=== PATIENT | male | born 1970 | race Caucasian/White ===

== ENCOUNTER 2024-03-13 02:02 | Day surgery (SDC) | payer OTHER, SELFPAY ==
[2024-03-04 13:24] VITALS: BMI 31.3
--- OUTSIDE RECORDS SUMMARY | 2024-03-13 02:05 | XMS_ITS | Data Portability ---
Author Organization [place] - [facility], Thomas Mo Address [address] [place] [address] Care Team Providers Care Tour Driver Name Role Phone ESSENCE HINOJOSA Primary Care Provider Assessment No assessment recorded. Plan of Treatment Reminders Order Date Submit Date Provider Last Modified By Organization Details Last Modified Time Details Appointments InPerson; Chronic Disease Mgmt 2024 04:00P Abran Hinojosa NP Not available Not available Not available [facility] lipid [facility], [facility] [place], [address], 09/04/2023 12:17:46 HbA1c (hemoglob in A1c), blood 2023 024 [facility]), [facility] [place], [address], 09/04/2023 12:17:48 CMP, serum or plasma 2023 024 [facility] [address] [place], [address], 09/04/2023 12:17:46 PSA, serum or plasma 2023 024 [facility] [place], [address], 09/04/2023 12:17:47 Referral None recorded. Procedures colonosco py screening (PROC) - hx polyps, was due for repeat 2021. 2023 024 [facility]un [facility], [address], [address], [place], [address], 03/04/2024 13:16:51 Surgeries None recorded. Imaging LDCT, chest, for lung cancer screening 2023 024 [email or web address] [facility], [address] [facility], [address], [place], [address], 12/13/2023 12:28:37 Medication Orders sildenafi l 100 mg tablet 2022 023 [facility], [address] [place] [address], [id number], 01/16/2023 18:51:16 lisinopri l 20 mg tablet 2022 023 [facility], [address] [place] [address], [id number], 01/16/2023 18:51:15 atorvasta tin 20 mg tablet 2022 023 [facility], [address] [place] [address], [id number], 01/16/2023 18:51:16 Patient TargetsNo targets recorded. Patient Instructions Encounter Date Encounter Id Patient Instructions Last Modified By Organization Details Last Modified Time 09/03/2023 [id number] smoking cessatio n counseling, greater than 3 minutes up to 10 minutes* [email or web address] Not available 09/03/2023 18:47:12 Reason for Referral None Reported. Results Created Date Observation Date Name Description Value Unit Range Abnormal Flag Note LastModifiedBy Organization Detail LastModifiedTime 09/03/1909/04/2023 COMP. METAB OLIC PANEL (14) glucose 93 mg/dL 70-99 normal Not Available [facility] ([facility]) [address] [facility], [place], [address], 09/04/2023 12:17:46 09/03/19 24 09/04/2023 COMP. METAB OLIC PANEL (14) BUN 18 mg/dL 6-24 normal Not Available [facility] ([facility]) [address] [place], [address], 09/04/2023 12:17:46 09/03/19 24 09/04/2023 COMP. METAB OLIC PANEL (14) creatinine 1.06 mg/dL 0.76-1 .27 normal Not Available [facility] ([facility]) [address] [place], [address], 09/04/2023 12:17:46 09/03/19 24 09/04/2023 COMP. METAB OLIC PANEL (14) eGFR 83 mL/mi n/1.7 3 >59 normal Not Available [facility] ([facility]) [address], [place], [address], 09/04/2023 12:17:46 09/03/19 24 09/04/2023 COMP. METAB OLIC PANEL (14) BUN/creatini ne ratio 17 9-20 normal Not Available [facility] ([facility]) [address] [facility], [place], [address], 09/04/2023 12:17:46 09/03/19 24 09/04/2023 COMP. METAB OLIC PANEL (14) sodium 141 mmol/ L 134-14 4 normal Not Available [facility] ([facility]) [address] [place], [address], 09/04/2023 12:17:46 09/03/19 24 09/04/2023 COMP. METAB OLIC PANEL (14) potassium 4.6 mmol/ L 3.5-5. 2 normal Not Available [facility] ([facility]) [address] [place], [address], 09/04/2023 12:17:46 09/03/19 24 09/04/2023 COMP. METAB OLIC PANEL (14) chloride 103 mmol/ L 96-106 normal Not Available [facility] ([facility] [address] [place], [address], 09/04/2023 12:17:46 09/03/19 24 09/04/2023 COMP. METAB OLIC PANEL (14) carbon dioxide, total 23 mmol/ L 20-29 normal Not Available [facility] ([facility]) [address] [place], [address], 09/04/2023 12:17:46 09/03/19 24 09/04/2023 COMP. METAB OLIC PANEL (14) calcium 9.6 mg/dL 8.7-10 .2 normal Not Available [facility] ([facility]) [address] [place], [address], 09/04/2023 12:17:46 09/03/19 24 09/04/2023 COMP. METAB OLIC PANEL (14) protein, total 7.4 g/dL 6.0-8. 5 normal Not Available [facility] ([facility]) [address] [place], [address], 09/04/2023 12:17:46 09/03/19 24 09/04/2023 COMP. METAB OLIC PANEL (14) albumin 4.7 g/dL 3.8-4. 9 normal Not Available [facility] ([facility]) [address] [place], [address], 09/04/2023 12:17:46 09/03/19 24 09/04/2023 COMP. METAB OLIC PANEL (14) globulin, total 2.7 g/dL 1.5-4. 5 Not Available [facility] ([facility]) [address] [place], [address], 09/04/2023 12:17:46 09/03/19 24 09/04/2023 COMP. METAB OLIC PANEL (14) bilirubin, total 0.3 mg/dL 0.0-1. 2 normal Not Available [facility] ([facility] [address] [place], [address], 09/04/2023 12:17:46 09/03/19 24 09/04/2023 COMP. METAB OLIC PANEL (14) alkaline phosphatase 48 IU/L 44-121 normal Not Available [facility]) [address] [place], [address], 09/04/2023 12:17:46 09/03/19 24 09/04/2023 COMP. METAB OLIC PANEL (14) AST (SGOT) 23 IU/L 0-40 normal Not Available [facility] ([facility]) [address] [place], [address], 09/04/2023 12:17:46 09/03/19 24 09/04/2023 COMP. METAB OLIC PANEL (14) ALT (SGPT) 17 IU/L 0-44 normal Not Available [facility] ([facility]) [address] [place], [address], 09/04/2023 12:17:46 09/03/19 24 09/04/2023 LIPID PANEL WITH LDL/H DL RATIO cholesterol, total 241 mg/dL 100-19 9 above high normal Not Available [facility] ([facility]) [address] [place], [address], 09/04/2023 12:17:46 09/03/19 24 09/04/2023 LIPID PANEL WITH LDL/H DL RATIO triglyceride s 371 mg/dL 0-149 above high normal Not Available [facility] ([facility]) [address] [place], [address], 09/04/2023 12:17:46 09/03/19 24 09/04/2023 LIPID PANEL WITH LDL/H DL RATIO HDL cholesterol 51 mg/dL >39 normal Not Available [facility]) [address] [place], [address], 09/04/2023 12:17:46 09/03/19 24 09/04/2023 LIPID PANEL WITH LDL/H DL RATIO VLDL cholesterol ted 65 mg/dL 5-40 above high normal Not Available [facility] ([facility]) [address] [place], [address], 09/04/2023 12:17:46 09/03/19 24 09/04/2023 LIPID PANEL WITH LDL/H DL RATIO LDL chol calc ([facility]) 125 mg/dL 0-99 above high normal Not Available [facility] ([facility]) [address] [place], [address], 09/04/2023 12:17:46 09/03/19 24 09/04/2023 LIPID PANEL WITH LDL/H DL RATIO LDL calc comment: REHABILITATION ASSISTANT Not Available [facility] ([facility]) [address] [place], [address], 09/04/2023 12:17:46 09/03/19 24 09/04/2023 LIPID PANEL WITH LDL/H DL RATIO LDL/HDL ratio 2.5 ratio 0.0-3. 6 LDL/H DL Ratio Men Women 1/2 Avg.R isk 1.0 1.5 Avg.R isk 3.6 3.2 2X Avg.R isk 6.2 5.0 3X Avg.R isk 8.0 6.1 Not Available [facility] ([facility]) [address] [place], [address], 09/04/2023 12:17:46 09/03/19 24 09/03/2023 PSA TOTAL (REFL EX TO FREE) reflex criteria Commen t The perce nt free PSA is perfo rmed on a refle x basis only when the total PSA is betwe en 4.0 and 10.0 ng/mL . Not Available [facility] ([facility]) [address] [place], [address], 09/04/2023 12:17:47 09/03/19 24 09/04/2023 PSA TOTAL (REFL EX TO FREE) prostate specific Ag 0.5 NG/mL 0.0-4. 0 normal Mirtha ECLIA metho dolog y. Accor ding to the Ameri can Urolo gical Assoc iatio n, Serum PSA shoul d decre ase and remai n at undet ectab le level s after radic al prost atect [place]. The AUA defin es bioch emica l recur rence as an initi al PSA value 0.2 ng/mL or great er follo wed by a subse quent confi rmato ry PSA value 0.2 ng/mL or great er. Value s obtai florentino with diffe rent assay metho ds or kits canno t be used inter walters eably . Resul ts canno t be inter prete d as absol smiley evide nce of the prese nce or absen ce of nahten teague se. Not Available [facility] ([facility]) [address] [facility], [place], [address], 09/04/2023 12:17:47 09/03/1909/04/2023 HEMOG LOBIN A1C hemoglobin A1C 5.5 % 4.8-5. 6 normal Predi abete s: 5.7 - 6.4 Diabe kelly: >6.4 Glyce jh contr ol for adult s with diabe kelly: <7.0 Not Available [facility] ([facility]) [address] [facility], [place], [address], 09/04/2023 12:17:48 Result Notes None recorded. Problems Name Problem SNOMED Code Status Onset Date Resolution Date Notes Provider Name and Address Organization Details Recorded Time Polyp of colon 08626774 Active Due for repeat colonosc opy 2021 Yaritza Storm MD [address], [place], [address] , [place] [facility] 3 16:40:21 Hyperlip idemia 28579669 Active Yaritza Storm MD [address], [place], [address] , [place] - [facility] 3 16:40:31 [facility] hyperten luisa 70156843 Active Yaritza Storm MD [address], [place], [address] , [place] [facility] 3 16:40:42 Smoker 96077154 Active Yaritza Storm MD [address], [place], [place], [address] [place] [address] , [place] [facility] 3 16:40:52 Gout 80168772 Active Yaritza Storm MD [address], [place], [place], [address] [place] [address] , [place] [facility] 3 16:41:00 Chronic back pain 889340139 Active Yaritza Storm MD [address], [place], [address] [place] [address] , [place] [facility] 3 16:41:08 Hyperten sive disorder 08840413 Active 2018 Hyperten sive disorder ; PROBABIL ITY: 0 SENSIT IVITY: 0.0 Conf irmation : Confirme d Annota tedDispl ay: Hyperten luisa Cla ssificat ion: Medical Lifecycl eDateTim e: 19:07:00 +00:00 Not Available [facility] 4 18:44:40 Absence Completed 201805/30/2023 None; PROBABIL ITY: 0 Confir mation: Confirme d Annota tedDispl ay: None Cla ssificat ion: Medical Not Available [facility] 4 18:44:40 Obesity 086811504 Active 2018 Obesity; PROBABIL ITY: 0 Confir mation: Probable Annotat edDispla y: Obesity Classifi cation: Medical Lifecycl eDateTim e: 18:00:00 +00:00 Not Available [facility] 4 18:44:40 History of polyp of colon 268969233 Active 2023 Essence Hinojosa NP [address], [facility], [place], [address] [place] [address] , [facility] 4 18:49:26 Problem Notes None recorded. Procedures Surgical History Date Name Laterality Status Provider Name and Address Organization Details Recorded Time 9 colonoscopy completed Essence Hinojosa NP [address], [place], [address], [place] [facility] 12/11/2023 22:57:58 Imaging Results None recorded. Procedure Notes None recorded. Medical Equipment None Reported. Allergies Allergen ID Allergen Name Allergen Category Reaction Reaction Severity Criticality Documentation Date Start Date Code Code System Note Provider Name and Address Organization Details Recorded Time 713814 No Allergy Informati on Available Not available Not available Not available Not available 05/30/2023 35107 UNK Comme nt: React ion Class : Aller gy; Not Available [facility] 19:02:26 Medications Name Sig Start Date Stop Date Status Note LastModified by Organization Details LastModified Time Augmentin 875 mg-125 mg tablet 1 tab(s) Oral q12hr,x1 0 days 01/29 completed Duration : 10 Durat ionUnit: days Sto pType: Physicia n Stop Jagdeep gIdentif icationN umber: [id number] S cheduled PRN: No Total Refills: 0 Consta ntIndica tor: Yes acti ve_statu s_dt_tm: 10:54:38 AM Not Available Not Available Not Available atorvasta tin 20 mg tablet TAKE 1 TABLET BY MOUTH EVERY DAY 2024 active Not Available Not Available Not Avai lable sildenafi l 50 mg tablet 01/10 completed PRNInstr uctions: as needed for erectile dysfunct ion Stop Type: Hard Stop Jagdeep gIdentif icationN umber: [id number] S cheduled PRN: Yes Tota lRefills : 0 Consta ntIndica tor: No CSASc hedule: 0 active _status_ dt_tm: 10:01:09 AM Not Available Not Available Not Available cetirizin e 10 mg tablet Take 1 tablet every day by oral route. active Not Available Not Available No t Available lisinopri l 20 mg tablet TAKE 1 TABLET BY MOUTH EVERY DAY 2024 active Not Available Not Available Not Avai lable tramadol 50 mg tablet 1 tab(s) Oral bid,PRN: for dental pain 07/12 completed PRNInstr uctions: for dental pain Dis continue Date: 07/12/2021 11:33:00 AM Disco ntinueTy pe: User Manual DC StopT ype: Physicia n Stop Jagdeep Jo-Ann antonioN umber: [id number] S cheduled PRN: Yes Tota lRefills : 0 Consta ntIndica tor: No CSASc hedule: 4 active _status_ dt_tm: 01/11/20 21 10:21:07 AM Not Available Not Available Not Available sildenafi l 100 mg tablet TAKE 1 TABLET BY ORAL ROUTE DIRECTED . 2024 active Not Available Not Available Not Avai lable benzonata te 100 mg capsule 1-2 cap(s) Oral tid,x7 days 12/24 completed Duration : 7 Durati onUnit: day(s) S topType: Physicia n Stop Jagdeep Jo-Ann antonioTahira umber: [id number] S cheduled PRN: No Total Refills: 0 Consta ntIndica tor: Yes CSAS chedule: 0 active _status_ dt_tm: 9 4:26:48 PM Not Available Not Available Not Available indometha jo-ann 50 mg capsule Take 1 capsule 3 times a day by oral route. 01/16 completed Not Available Not Available Not Available fluticaso ne propionat e 50 mcg/actua tion nasal spray,nicole pension SPRAY 2 SPRAYS IN EACH NOSTRIL ONCE DAILY 2023 active Not Available Not Available Not Avai lable cyclobenz aprine 5 mg tablet TAKE ONE OR TWO TABLETS BY MOUTH EVERY 8 HOURS NEEDED FOR PAIN. MAY CAUSE DROWSINE SS. active Not Available Not Available No t Available Adacel (Tdap Adolesn/A dult)(PF) 2 Lf-(2.5-5 -3-5)-5 Lf/0.5 mL IM syringe 12/17 completed StopType : Physicia n Stop Jagdeep Jo-Ann antonioN umber: [id number] N extDoseD ate: 9 4:27:00 PM Const antIndic ator: No CSASc hedule: 0 active _status_ dt_tm: 9 4:27:40 PM Not Available Not Available Not Available Vitals Date Recorded Body height Provider Name an d Address Organization Details Last Updated DateTime 01/16/2023 190.5 cm Marnie [place] [facility] 07/2022 18:17:26 Date Recorded Body mass index (BMI) Body weight Provider Name and Address Organization Details Last Updated DateTime 01/16/2023 32.1 kg/m2 029890.24 g Marniealber [place] [facility] 01/16/2023 18:17:38 Date Recorded Heart rate Provider Name an d Address Organization Details Last Updated DateTime 01/16/2023 71 /min Marnie Isaacses [place] [facility] 07/2022 18:18:06 Date Recorded Oxygen saturation Oxygen saturation in Arterial blood by Pulse oximetry Provider Name and Address Organization Details Last Updated DateTime 01/16/2023 99 % 99 % Marnie Michelle [place] [facility] 01/16/2023 18:18:25 Date Recorded Body temperature Provider Name a nd Address Organization Details Last Updated DateTime 01/16/2023 98.7 [degF] Marnie [place] [facility] 07/2022 18:18:56 Date Recorded Body height Provider Name an d Address Organization Details Last Updated DateTime 09/03/2023 190.5 cm Júnior [place] [facility] 16:46:13 Date Recorded Body mass index (BMI) Body weight Provider Name and Address Organization Details Last Updated DateTime 09/03/2023 32.6 kg/m2 976266.61 g Júnior [place] [facility] 09/03/2023 16:46:19 Date Recorded Respiratory rate Provider Name a nd Address Organization Details Last Updated DateTime 09/03/2023 16 /min Júnior [place] [facility] 16:47:15 Date Recorded Oxygen saturation Oxygen saturation in Arterial blood by Pulse oximetry Provider Name and Address Organization Details Last Updated DateTime 09/03/2023 98 % 98 % Júnior [place] [facility] 16:47:17 Date Recorded Body temperature Provider Name a nd Address Organization Details Last Updated DateTime 09/03/2023 98.6 [degF] Júnior [place] [facility] 09/03/19 16:47:21 Date Recorded Heart rate Provider Name an d Address Organization Details Last Updated DateTime 09/03/2023 90 /min Júnior [place] [facility] 16:47:25 Date Recorded Systolic blood pressure Diastolic blood pressure Provider Name and Address Organization Details Last Updated DateTime 01/16/2023 149 mm[Hg] 97 mm[Hg] Marnie Martinez [place] [facility] 01/16/2023 18:17:56 Date Recorded Systolic blood pressure Diastolic blood pressure Provider Name and Address Organization Details Last Updated DateTime 01/16/2023 144 mm[Hg] 88 mm[Hg] Essence Hinojosa, [address], [place], [address], [place] [facility] 01/16/2023 18:29:18 Date Recorded Systolic blood pressure Diastolic blood pressure Provider Name and Address Organization Details Last Updated DateTime 09/03/2023 140 mm[Hg] 92 mm[Hg] Júnior Michel [place] [facility] 0 09/03/2023 16:48:02 Social History Question Answer Notes LastModified by Organizat ion Details LastModified Time Tobacco Smoking Status Current Every Day Smoker Marnie Martinez [facility], [place] [facility] 01/16/2023 18:14:34 What Is Your Level Of Alcohol Consumption? Moderate Weekly [email or web address] Information not available 01/16/2023 What Is Your Level Of Caffeine Consumption? Heavy [email or web address] Information not available 01/16/2023 In The 14 Days Before Symptom Onset, Have You Had Close Contact With A Laboratory-confir med COVID-19 While That Case Was Ill? No Information not available 01/16/2023 In The 14 Days Before Symptom Onset, Have You Had Close Contact With A Person Who Is Under Investigation For COVID-19 While That Person Was Ill? No [email or web address] Information not available 01/16/2023 Have You Been To An Area Known To Be High Risk For COVID-19? No Information not available 01/16/2023 What Is Your Current Pack Years? 30ormorepack years Information not available 01/16/2023 What Is Your Relationship Status? [email or web address] Information not available 01/16/2023 How Much Tobacco Do You Smoke? 1 PPW [email or web address] Information not available 01/16/2023 How Many Years Have You Smoked Tobacco? 30 More Than 30 [email or web address] Information not available 01/16/2023 Do You Or Have You Ever Used Any Other Forms Of Tobacco Or Nicotine? No [email or web address] Information not available 01/16/2023 Sex: Unknown Functional Status None recorded. Mental Status None recorded. Family History Relationship Description Onset Age of this Age Resolved Age Notes LastModified by Organization Details LastModified Time Mother Malignant tumor of cervix [email or web address] Not available 2022 18:51:47 Brother Essential hypertension [email or web address] Not available 07/2022 18:52:00 Father Essential hypertension [email or web address] Not available 07/2022 18:52:00 Notes:Brother: High blood pr essure Father: Mother: Cervical cancer Medical History No medical history recorded. Immunizations Vaccine Type Date Status Note Provider Nam e and Address Organization Details Recorded Time Tdap 12/17/2018 completed Essence Hinojosa NP [address], [place], [address], [place] [facility] 01/16/2023 18:56:19 SARS-COV-2 (COVID-19) vaccine, UNSPECIFIED 04/22/2020 completed Essence Hinojosa NP [address], [place], [address], [place] [facility] 01/16/2023 18:56:19 influenza, split (incl. purified surface antigen) 06/23/2013 completed Júnior julien [place] [facility] 09/03/2023 16:46:06 Past Encounters Encounter ID Performer Location Encounter Start Date Encounter Closed Date Diagnosis/Indication Diagnosis SNOMED-CT Code Diagnosis ICD10 Code Diagnosis Note [id number] [address] [place] [address] 01/16/2023 17:56:48 01/22/2023 06:53:06 Essential hypertension 67047843 I10 To keep a home BP long and return in 1 month for review and blood work. May need to increase dose. Erectile dysfunction 860 571964 F52.21 Hyperlipidemia 00286844 E78.5 [id number] [address] [place] [address] 09/03/2023 16:33:43 09/03/2023 17:20:00 Adult health examination 839848584 Z00.00 Briefly discussed healthy diet and regular exercise. Encouraged to be tobacco free. Encouraged to avoid binge drinking or more than 2 drinks per day. Annual eye exam and biannual dental cleanings recommende d. Discussed recommende d vaccines and screenings per HPI. Discussed option to follow up with physician in 2 weeks for new conditions . Smoker 22032229 F17.200 .Encourage d cessation. Currently not interested .CT Chest order placed and he will plan to get done in next few months. Essential hypertension 75796667 I10 VV in 2-3 weeks to f/u on home BP once restarting lisinopril .RTC 6 months History of polyp of colon 944484385 Z86.010 Due for repeat colonoscop y. Health Concerns Section Related Observation LastModified by Organization Detai ls LastModified Time None Recorded Concern Status LastModified by Organization Details LastModified Time None Recorded Advance Directives Directive None Recorded Payers Encounter Date Sequence Insurance Name Policy Number Policy El Covered Member ID El Member ID Guarantor Name 01/16/2023 1 [facility] [id number] Henrik Walsh UNKNOWN Henrik Walsh 09/03/2023 1 [facility] [id number] Sammy Nico UNKNOWN Henrik Walsh Notes Date Note Type Note Provider Name and Address Organization Details Recorded Time 01/16/2023 text/html HTN on lisinopri l 20mg daily. Usually compliant with meds. Mom broke her hip last week so routine has been off and missed a few doses. HLD on atorvastatin (ASCVD risk >16%). No new body pains. Has some left knee pain when kneeling.ED on sildenafil. Hx of Gout: takes indomethacin prn (has not needed in months). No recent flares. Smoker: 35+ pack years. Has never had lung cancer screening. CT Chest ordered but has yet to schedule. Not drinking as much. 6-8 Beverages at a time, not everyday. . Chronic back pain: works with chiro for flares. Doing well recently.Colonosco py ordered for polyps. Has # to schedule when he's ready. Essence Hinojosa NP [address], [place], [address], [place] [facility] 01/16/2023 18:58:16 09/03/2023 text/html The patient presents for annual well adult exam.Health concerns:HTN on lisinopril 20mg daily.Lost insurance and ran out so has not take in months. Has a new refill at home but has not opened pharmacy bag yet.HLD on atorvastatin (ASCVD risk >16%). Has not taken in months.ED on sildenafil.Hx of Gout: takes indomethacin prn (has not needed in months). No recent flares.Smoker: 35+ pack years. Has never had lung cancer screening. CT Chest ordered but has yet to schedule. Chronic back pain: works with [employer] for flares. More sore lately . Colonoscopy ordered for polyps. Would like to get done before he turns 53. Diet: Unrestricted.Exerc ise: Active at work, +Yard work, and farm work.Caffeine use: Has cut coffee down to <4 cups per day (down from 12/day)Tobacco use: 1-1.5ppd x 35 years, quit a few times for short period. Considering quitting but poor motivation - it's not a good time . No chewing or vaping.Alcohol use: Tapered down to 20 beers per week, monstly on weekends.Lives at home with who is also a ramirez and 3 daughters Last dentist exam:B[place]on has a hole from mouth to right sinus from molar extraction. Has upper dentures.Last eye exam: DueAnxiety / Depression concerns: denies poor mood despite stress.Vaccines:Td ap 2019COVID vaccine: J&J hingrix: declinesPneumonia: declinesFlu: declines Recommended Screenings:PSA: labs todayLung Cancer Chest CT: ordered, never doneColonoscopy: 2019 - polyps; repeat in 2 years.(Overdue)Daniel pedraza cancer screen ( age > 50 & 20 pack yr hx):HCV/HIV Screen:Negative Essence Hinojosa NP [id number], [place], [address], [place] [facility] 09/03/2023 18:50:55
[2024-03-13 06:54] VITALS: BP 142/88; PULSE 75; RESP 20; TEMP 35.7; O2SAT 97; BMI 31.8
[2024-03-13] MEDS: LACTATED RINGERS 1,000 ML 150 ML IV CONT (07:05)
--- NOTE | 2024-03-13 07:41 | P.PNAN_ITS ---
Anes - Initial Pre Proc Eval Procedure: Operation Date: 03/13/24 08:00 Proposed Procedures p Screening Colonoscopy - Newton Huynh MD Date/Time: 03/13/24 07:41 Surgeon: Newton Huynh MD Pre Op Diagnosis: personal hx polyps Patient Data Age: 53 Gender: M Height: 1.91 m Weight: 115.7 kg Last Vital Signs Temp 35.7 C L 03/13/24 06:54 Pulse 75 03/13/24 06:54 Resp 20 03/13/24 06:54 BP 142/88 H 03/13/24 06:54 Pulse Ox 97 03/13/24 06:54 O2 Del Method Room Air 03/13/24 06:54 Allergies Allergy/AdvReac Type Severity Reaction Status Date / Time No Known Drug Allergies Allergy Mild Other Verified 03/13/24 06:52 Home Medications ?Medication ?Instructions ?Recorded ?Confirmed ?Type lisinopril 20 mg tablet 20 mg PO DAILY 01/22/19 03/13/24 History atorvastatin 20 mg tablet 20 mg PO .qday 03/04/24 03/13/24 History Patient hx anesthesia problems: none Family hx anesthesia problems: none Results Review: All pre-operative results and documents have been reviewed as part of the pre- operative evaluation. [facility] Past Medical History Medical History Anxiety Hypertension Social History Social History Smoking packs per day: 1.5 Smoking cigarettes per day: 30.0 Years smoked: 40 Smoking pack-years: 60.00 Smoking status: Current every day smoker Tobacco type: cigarettes Alcohol intake: current Drinks per week: 10 Alcohol use details: 6-10 drinks per day Living arrangements: with family Additional living arrangements comments: Spiritual care concerns: No Anes - Eval Final PreProcedure Day of Procedure 03/13/24 07:41 Patient weight: obese Heart: regular rate and rhythm Lungs: decreased breath sounds Airway: Mallampati scale class II Neurological: alert and oriented Last oral intake: >/= 8 hours ASA classification: III Emergent: no Anesthetic plan: proceed Anesthesia type and monitoring: general GIVS and standard monitoring Results Review: All pre-operative results and documents have been reviewed as part of the pre- operative evaluation. Informed Consent: The patient's anesthetic plan and its attendant risks and benefits were discussed with the patient/family/POA. Questions were solicited and answers provided to the satisfaction of the patient/family/POA.
--- NOTE | 2024-03-13 07:45 | PM.HPGS ---
History of Present Illness History of Present Illness Consent: Risks, benefits, and alternatives have been discussed and questions answered. Patient agrees to proceed with procedure. Chief complaint: personal hx polyps Narrative: Henrik Walsh is a 53 year old male with colon polyp in 2019 Review of Systems Review of Systems: All systems reviewed & are unremarkable except as noted in HPI and below PMFSH Past Medical History Medical History (Updated 03/13/24 @ 07:46 by Newton Huynh MD) Adenomatous colon polyp Anxiety Hypertension Social History Social History Smoking packs per day: 1.5 Smoking cigarettes per day: 30.0 Years smoked: 40 Smoking pack-years: 60.00 Smoking status: Current every day smoker Tobacco type: cigarettes Alcohol intake: current Drinks per week: 10 Alcohol use details: 6-10 drinks per day Living arrangements: with family Additional living arrangements comments: Spiritual care concerns: No Meds Home Medications and Allergies Home Medications ?Medication ?Instructions ?Recorded ?Confirmed ?Type lisinopril 20 mg tablet 20 mg PO DAILY 01/22/19 03/13/24 History atorvastatin 20 mg tablet 20 mg PO .qday 03/04/24 03/13/24 History Allergies Allergy/AdvReac Type Severity Reaction Status Date / Time No Known Drug Allergies Allergy Mild Other Verified 03/13/24 06:52 Vital Signs Vital Signs - 24 hr 03/13/24 06:54 Temperature 96.2 F L Pulse Rate 75 Respiratory Rate 20 Blood Pressure 142/88 H Pulse Oximetry 97 Oxygen Delivery Room Air Exam Const: General: comfortable and no acute distress HENMT: Face/Nose/Sinus: Normal nares present Eyes: General: appearance normal, both eyes and all related structures Neck: Neck: no JVD Resp: Auscultation: clear to auscultation bilaterally Cardio: Rate: regular rate Rhythm: regular rhythm GI: Inspection: non-distended GI Palp: Yes Soft to palpation Skin: General skin exam: normal color Neuro: Speech: normal speech Extrem: General: normal to inspection Psych: Mental Status: mental status grossly normal Assessment and Plan Assessment and plan (1) Adenomatous colon polyp: Code(s): D12.6 - Benign neoplasm of colon, unspecified Status: Acute Assessment and Plan: colonoscopy
[2024-03-13 08:06] VITALS: BP 117/80; PULSE 72; RESP 19; O2SAT 96
[2024-03-13 08:16] VITALS: BP 118/78; PULSE 67; RESP 18; O2SAT 97
[2024-03-13 08:26] VITALS: BP 127/81; PULSE 64; RESP 17; O2SAT 98
== END 2024-03-13 08:42 | disposition home or self-care (01) ==
PROVIDERS: Visit Provider Internal Medicine Gastroenterology
PROC: 0DJD8ZZ Inspection of Lower Intestinal Tract, Via Natural or Artificial Opening Endoscopic (ICD-10-PCS; CPT 45378; principal; 2024-03-13 08:00)
DX: Z12.11 Encounter for screening for malignant neoplasm of colon (principal); D12.3 Benign neoplasm of transverse colon
CPT/HCPCS: 45385; 88305; J2003; J2704; J7120